=== PATIENT | female | born 1990 | race Caucasian/White ===

== ENCOUNTER 2018-06-23 00:26 | Emergency (ER) | payer OTHER ==
[~2018-06-23] VITALS: Ht 154.9 cm; Wt 110.9 kg
[2018-06-23] MEDS ORDERED: IBUPROFEN 600 MG TABLET PO ONE (02:30)
[2018-06-23 02:45] VITALS: BP 132/78
== END 2018-06-23 03:11 | disposition home or self-care (01) ==
LOC: EMS 00:27
DX: S93.402A Sprain of unspecified ligament of left ankle, initial encounter (principal); S93.602A Unspecified sprain of left foot, initial encounter; B35.3 Tinea pedis; X58.XXXA Exposure to other specified factors, initial encounter; Y93.89 Activity, other specified; Y92.89 Other specified places as the place of occurrence of the external cause; Y99.8 Other external cause status
CPT/HCPCS: 29515; 99284